=== PATIENT | male | born 1985 | race Caucasian/White ===

== ENCOUNTER 2025-06-22 06:22 | Emergency (ER) | payer OTHER ==
[~2025-06-22] VITALS: Ht 188 cm; Wt 128.6 kg
[2025-06-22 06:26] VITALS: O2SAT 96
[2025-06-22] MEDS: ASPIRIN 81MG TABLET PO ONE (07:10)
[2025-06-22 07:26] LABS: BASOPHILS % 0.5 % (0.0-2.0); EOSINOPHILS % 2.8 % (0.0-5.0); HEMATOCRIT. 41.2 % (42.0-52.0); HEMOGLOBIN. 14.2 g/dL (14.0-18.0); LYMPHOCYTES % 41.3 % (20.0-50.0); MEAN PLATELET VOLUME 9.6 fl (7.4-10.4); MONOCYTES % 7.1 % (2.0-8.0); NEUTROPHILS % 48.3 % (40.0-76.0); PLATELET 184 x1000/uL (130-400); RED BLOOD CELL COUNT 4.43 mill/uL (4.7-6.1); RED CELL DISTRIBUTION WIDTH 12.8 % (11.6-14.6)
[2025-06-22 07:41] LABS: CREATININE 0.9 mg/dL (0.6-1.3); UREA NITROGEN BLOOD 12 mg/dL (9-23)
[2025-06-22 07:42] LABS: PROTEIN TOTAL 6.7 g/dL (6.0-8.3)
[2025-06-22 07:43] LABS: ASPARTATE AMINOTRANSFERASE 20 IU/L (<34); BILIRUBIN DIRECT 0.2 mg/dL (<=3.0); BILIRUBIN TOTAL 0.5 mg/dL (0.1-1.0); TROPONIN I HIGH SENSITIVITY 5 ng/L (3.0-53)
[2025-06-22 07:56] VITALS: BP 127/82; PULSE 61; RESP 16; TEMP 36.8; O2SAT 97
[2025-06-22 09:50] LABS: TROPONIN I HIGH SENSITIVITY 5 ng/L (3.0-53)
== END 2025-06-22 10:26 | disposition home or self-care (01) ==
LOC: ER 06:22 → CANBEDREQ 10:06 → ER 10:26
DX: R07.9 Chest pain, unspecified (principal); Z79.899 Other long term (current) drug therapy
CPT/HCPCS: 80076; 80048; 83735; 85025; 85379; 84484; 36415; 71045; 93005; 99285; Z7610